=== PATIENT | female | born 1985 | race Caucasian/White ===

== ENCOUNTER 2017-12-20 07:26 | Emergency (ER) | payer BC ==
--- NOTE | 2017-12-20 07:49 | EDM.PDOC ---
ED HPI GENERAL MEDICAL PROBLEM - General Chief Complaint: ENT Problem Stated Complaint: SORE THROAT Time Seen by Provider: 12/20/17 07:37 - History of Present Illness INITIAL COMMENTS - FREE TEXT/NARRATIVE: HISTORY AND PHYSICAL: History of present illness: The patient is a 32-year-old female who presents with a one-day history of her throat and left ear pain cough occasionally productive of phlegm and nasal congestion. The patient is at her fever nausea vomiting or abdominal pain. The patient denies . She says she was seen several weeks ago by Dr. Stephens for laryngitis and was treated with a medication for 3 days and improved. She has no shortness of breath or chest pain. Been eating and drinking normally but there is discomfort with swallowing. Patient has a history of a tonsillectomy and she did not get her influenza shot this year Review of systems: As per history of present illness and below otherwise all systems reviewed and negative. Past medical history: As per history of present illness and as reviewed below otherwise noncontributory. Surgical history: As per history of present illness and as reviewed below otherwise noncontributory. Social history: No reported history of drug or alcohol abuse. Family history: As per history of present illness and as reviewed below otherwise noncontributory. Physical exam: Gen.: Well-developed well-nourished female who is voice is not breathless or hoarse but is slightly nasal. Vital signs are noted by me. HEENT: Atraumatic, normocephalic, pupils reactive, negative for conjunctival pallor or scleral icterus, mucous membranes moist, throat clear of any swelling but there is some erythema of the posterior oropharynx right greater than left and some mucus seen on the left crypt, there is no cervical adenopathy or nuchal rigidity, the right TM is slightly dulled in the left TM is reddened and slightly bulging,, neck supple, nontender, trachea midline. Lungs: Clear to auscultation, breath sounds equal bilaterally, chest nontender. Heart: S1S2, regular rate and rhythm no overt murmurs Abdomen: Soft, nondistended, nontender. NABS Pelvis: Deferred Genitourinary: Deferred. Rectal: Deferred. Extremities: Atraumatic, negative for cords or calf pain. Neurovascular unremarkable. Neuro: Awake, alert, oriented. Cranial nerves II through XII unremarkable. Cerebellum unremarkable. Motor and sensory unremarkable throughout. Exam nonfocal. Diagnostics: Rapid strep influenza Therapeutics: [] Impression: Left otitis media/pharyngitis/cough-URI Definitive disposition and diagnosis as appropriate pending reevaluation and review of above. Left ear and throat pain Pain Score (Numeric/FACES): 8 - Related Data Allergies Allergy/AdvReac Type Severity Reaction Status Date / Time adhesive Allergy Redness Verified 12/20/17 07:36 Home Meds: Home Meds . [Unable to Verify Home Med List] 12/20/17 [History] Past Medical History Neurological History: Reports: MS - Past Surgical History HEENT Surgical History: Reports: Adenoidectomy, Myringotomy w Tube(s), Tonsillectomy Social & Family History - Family History Family Medical History: Noncontributory - Tobacco Use Smoking Status *Q: Never Smoker Second Hand Smoke Exposure: No - Caffeine Use Caffeine Use: Reports: Coffee, Soda - Alcohol Use Days Per Week of Alcohol Use: 0 - Recreational Drug Use Recreational Drug Use: No Drug Use in Last 12 Months: No ED ROS GENERAL - Review of Systems Review Of Systems: ROS reveals no pertinent complaints other than HPI. ED EXAM, GENERAL - Physical Exam Exam: See Below (See dictation) Course - Vital Signs Last Recorded V/S: Last Vital Signs Temp 36.5 C 12/20/17 07:38 Pulse 87 12/20/17 07:38 Resp 16 12/20/17 07:38 BP 136/98 H 12/20/17 07:38 Pulse Ox 98 12/20/17 07:38 - Orders/Labs/Meds Orders: Active Orders 24 hr Category Date Time Status CULTURE STREP A CONFIRMATION [RM] Stat Lab 12/20/17 07:50 Results STREP SCRN A RAPID W CULT CONF [RM] Stat Lab 12/20/17 07:50 Results Departure - Departure Time of Disposition: 08:31 Disposition: Home, Self-Care 01 Condition: Good Clinical Impression: Otitis media Qualifiers: Otitis media type: unspecified Laterality: left Qualified Code(s): H66.92 - Otitis media, unspecified, left ear URI (upper respiratory infection) Qualifiers: URI type: unspecified viral URI Qualified Code(s): J06.9 - Acute upper respiratory infection, unspecified Pharyngitis Qualifiers: Pharyngitis/tonsillitis etiology: unspecified etiology Qualified Code(s): J02.9 - Acute pharyngitis, unspecified - Discharge Information Referrals: Tima Stephens MD [Primary Care Provider] - Forms: ED Department Discharge Additional Instructions: The following information is given to patients seen in the emergency department who are being discharged to home. This information is to outline your options for follow-up care. We provide all patients seen in our emergency department with a follow-up referral. The need for follow-up, as well as the timing and circumstances, are variable depending upon the specifics of your emergency department visit. If you don't have a primary care physician on staff, we will provide you with a referral. We always advise you to contact your personal physician following an emergency department visit to inform them of the circumstance of the visit and for follow-up with them and/or the need for any referrals to a consulting specialist. The emergency department will also refer you to a specialist when appropriate. This referral assures that you have the opportunity for followup care with a specialist. All of these measure are taken in an effort to provide you with optimal care, which includes your followup. Under all circumstances we always encourage you to contact your private physician who remains a resource for coordinating your care. When calling for followup care, please make the office aware that this follow-up is from your recent emergency room visit. If for any reason you are refused follow-up, please contact the [facility] emergency department at and ask to speak to the emergency department charge nurse. [facility] Primary care- Internal Medicine and Family [address] [address] Push hydration and use [id number] medications for any fevers and pain. Take cough medicine as needed but only take when you're at home. Take antibiotics until they are finished and please call and schedule a follow-up appointment in the clinic in the next few days. Return to ER as needed and as discussed - My Orders Last 24 Hours: My Active Orders 12/20/17 07:50 CULTURE STREP A CONFIRMATION [RM] Stat STREP SCRN A RAPID W CULT CONF [] Stat - Assessment/Plan Last 24 Hours: My Active Orders 12/20/17 07:50 CULTURE STREP A CONFIRMATION [RM] Stat STREP SCRN A RAPID W CULT CONF [RM] Stat
[2017-12-20 09:05] VITALS: BP 125/86
== END 2017-12-20 08:50 | disposition home or self-care (01) ==
LOC: MW.ED 07:26
DX: J02.9 Acute pharyngitis, unspecified (principal); H66.92 Otitis media, unspecified, left ear; Z96.22 Myringotomy tube(s) status; Z98.890 Other specified postprocedural states; Z91.048 Other nonmedicinal substance allergy status
CPT/HCPCS: 87081; 87804; 87880; 99282; 99283

== ENCOUNTER 2020-03-26 09:25 | Day surgery (SDC) | payer OTHER ==
[~2020-03-26 09:25] MED LIST: Lactated Ringers 1,000 ML IV SCH; Lidocaine 1% with EPINEPHrine 1:100,000 10 ML MDV ONE
[2020-03-26] MEDS ORDERED: fentaNYL 100 MCG/2 ML SDV ONE (09:56)
[2020-03-26] MEDS ORDERED: Propofol 200 MG/20 ML SDV ONE (09:56)
[2020-03-26] MEDS ORDERED: Lidocaine 2% 5 ML SDV ONE (09:57)
[2020-03-26] MEDS ORDERED: Midazolam 1 MG/ML 2 ML SDV ONE (09:57)
[2020-03-26] MEDS ORDERED: Albuterol 0.083% 2.5 MG/3 ML Neb Soln NEB PRN (11:04)
[2020-03-26] MEDS ORDERED: 50% Dextrose in Water 50 ML Syringe IVPUSH PRN (11:04)
[2020-03-26] MEDS ORDERED: fentaNYL 100 MCG/2 ML SDV IVPUSH PRN (11:04)
[2020-03-26] MEDS ORDERED: Atropine 0.1 MG/ML 10 ML Syringe IVPUSH PRN ×2 (11:04)
[2020-03-26] MEDS ORDERED: Naloxone 0.4 MG/ML Syringe IVPUSH PRN (11:04)
[2020-03-26] MEDS ORDERED: EPINEPHrine 1:10,000 1 MG/10 ML Syringe IVPUSH PRN (11:04)
--- NOTE | 2020-03-26 11:16 | PCM.PREANE ---
Preanesthetic Assessment - Anesthesia/Transfusion/Family Hx Anesthesia History: Prior Anesthesia Without Reaction Family History of Anesthesia Reaction: No Transfusion History: No Prior Transfusion(s) - Review of Systems General: No Symptoms Pulmonary: No Symptoms Cardiovascular: No Symptoms Gastrointestinal: No Symptoms Neurological: Other (MS) Other: Reports: None - Physical Assessment NPO Status Date: 03/25/20 NPO Status Time: 23:00 Vital Signs: Last Vital Signs Temp 98.1 F 03/26/20 09:45 Pulse 64 03/26/20 09:45 Resp 16 03/26/20 09:45 BP 136/84 03/26/20 09:45 Pulse Ox 97 03/26/20 09:45 Height: 5 ft 11 in Weight: 96.615 kg ASA Class: 2 Mental Status: Alert & Oriented x3 Airway Class: Mallampati = 2 Dentition: Reports: Normal Dentition ROM/Head Extension: Full Lungs: Clear to Auscultation, Normal Respiratory Effort Cardiovascular: Regular Rate, Regular Rhythm - Allergies Allergies/Adverse Reactions: Allergies Allergy/AdvReac Type Severity Reaction Status Date / Time adhesive Allergy Redness Verified 03/20/20 13:15 - Anesthesia Plan Pre-Op Medication Ordered: None - Acknowledgements Anesthesia Type Planned: General Anesthesia Pt an Appropriate Candidate for the Planned Anesthesia: Yes Alternatives and Risks of Anesthesia Discussed w Pt/Guardian: Yes Pt/Guardian Understands and Agrees with Anesthesia Plan: Yes Additional Comments: PMH: MS. migraine,hx community aquired MRSA- 20 yr ago PreAnesthesia Questionnaire Cardiovascular History: Reports: Hypertension, Other (See Below) Other Cardiovascular History: hx of hypertension- has not taken medication for 5 months Neurological History: Reports: Migraines, MS, Other (See Below) Other Neuro History: hx of motion sickness, hx of MS- take an infusion twice a year Psychiatric History: Reports: Anxiety Other Psychiatric History: not diagnosed or treated - Past Surgical History Head Surgeries/Procedures: Reports: None HEENT Surgical History: Reports: Adenoidectomy, LASIK, Myringotomy w Tube(s), Tonsillectomy Female Surgical History: Reports: LEEP Neurological Surgical History: Reports: Laminectomy - SUBSTANCE USE Smoking Status *Q: Former Smoker Tobacco Use Within Last Twelve Months: No Days Per Week of Alcohol Use: 0 Recreational Drug Use History: No - HOME MEDS Home Medications: Home Meds Naratriptan HCl 1 mg PO ASDIRECTED PRN 03/20/20 [History] - CURRENT (IN HOUSE) MEDS Current Meds: Current Medications Albuterol (Proventil Neb Soln) 2.5 mg NEB ONETIME PRN PRN Reason: Wheezing Atropine Sulfate (Atropine 0.1 Mg/Ml) 0.5 mg IVPUSH ASDIRECTED PRN PRN Reason: Hypo-perfusion Atropine Sulfate (Atropine 0.1 Mg/Ml) 1 mg IVPUSH ASDIRECTED PRN PRN Reason: Hypo-Perfusion Dextrose/Water (Dextrose 50% In Water) 50 ml IVPUSH ASDIRECTED PRN PRN Reason: Hypoglycemia Epinephrine HCl (Epinephrine 1:10,000) 1 mg IVPUSH ASDIRECTED PRN PRN Reason: ACLS Guidelines Fentanyl (Sublimaze) 50 mcg IVPUSH Q5M PRN PRN Reason: Pain Lactated Ringer's (Ringers, Lactated) 1,000 mls @ 100 mls/hr IV ASDIRECTED EMILEE Naloxone HCl (Narcan) 0.1 mg IVPUSH ASDIRECTED PRN PRN Reason: Respiratory Depression Discontinued Medications Fentanyl (Sublimaze) Confirm Administered Dose 100 mcg .ROUTE .STK-MED ONE Stop: 03/26/20 09:57 Lidocaine (Xylocaine-Mpf 2%) Confirm Administered Dose 5 ml .ROUTE .STK-MED ONE Stop: 03/26/20 09:58 Lidocaine/Epinephrine (Xylocaine 1% With Epinephrine 1:100,000) Confirm Administered Dose 10 ml .ROUTE .STK-MED ONE Stop: 03/26/20 08:00 Midazolam HCl (Versed 1 Mg/Ml) Confirm Administered Dose 2 mg .ROUTE .STK-MED ONE Stop: 03/26/20 09:58 Propofol (Diprivan 20 Ml) Confirm Administered Dose 200 mg .ROUTE .STK-MED ONE Stop: 03/26/20 09:57
[2020-03-26] MEDS ORDERED: Dexamethasone 4 MG/ML 5 ML MDV ONE (12:19)
[2020-03-26] MEDS ORDERED: Ondansetron 4 MG/2 ML SDV ONE (12:19)
--- NOTE | 2020-03-26 12:37 | PCM.OPNOTE ---
- General Post-Op/Procedure Note Date of Surgery/Procedure: 03/26/20 Operative Procedure(s): LEEP Findings: large ectocervical area covered with acetowhite epithelium, with mosaicism and punctation, extending to endocervical canal. Pre Op Diagnosis: GERDA II Post-Op Diagnosis: Same Anesthesia Technique: General LMA Primary Surgeon: Gale Corona Anesthesia Provider: Mario Alberto Huynh Pathology: anterior ectocervix labelled at 12 o'clock, posterior ectocervix labelled at 6 o 'clock, endocervical "hat" labelled at 12 o'clock. EBL in mLs: 20 Complications: None known Condition: Good
--- NOTE | 2020-03-26 14:01 | OR ---
SURGEON: Gale Corona M.D. DATE OF PROCEDURE: 03/26/2020 PREOPERATIVE DIAGNOSIS: Cervical intraepithelial neoplasia 2. POSTOPERATIVE DIAGNOSIS: Cervical intraepithelial neoplasia 2. PROCEDURE: Loop electrode excisional procedure of the cervix. PRIMARY SURGEON: Gale Corona MD ANESTHESIA: Cervical block and LMA. ESTIMATED BLOOD LOSS: Less than 20 mL. FINDINGS: On colposcopic examination after acetic acid had been applied, there was a large area of acetowhite epithelium on the ectocervix. This included punctation and mosaicism, and Lugol's solution was applied. The nonstaining area was noted and removed with the LEEP specimen. COMPLICATIONS: None known. DISPOSITION: Stable to Recovery. BRIEF HISTORY: This is a 35-year-old female. She presents with GERDA-2 on biopsies performed last June. She has been delaying her surgery at first for school, also consideration of a hysterectomy for pelvic organ prolapse, and then was delayed due to COVID. She now presents for a loop electrode excisional procedure. She does not want to proceed with a hysterectomy at this time as her prolapse is tolerable, and she is concerned about the impact it may have on her MS. The risk of loop electrode excisional procedure was reviewed including bleeding, infection, and risk of incompetent cervix with future pregnancies. Understanding these risks, she does desire to proceed. DESCRIPTION OF PROCEDURE: With the patient in dorsal lithotomy position, under adequate LMA analgesia, an insulated speculum was placed into the vagina. Bladder had been drained. The cervix was inspected and acetic acid was applied. Colposcopic examination was performed with findings as noted above. A total of 10 mL of 1% lidocaine with epinephrine was injected at the 12, 5, and 7 o'clock position of the cervix. The anterior cervix was grasped with an insulated tenaculum. The ectocervix was very large and largely involving the acetowhite epithelium. Therefore, the largest loop was utilized to excise the anterior ectocervix, which was then labeled with a suture at 12 o'clock, and the same loop was utilized to excise the posterior ectocervix, which was also labeled at 6 o'clock with a suture. A hat type endocervical specimen was then taken using pure cut setting of 60. This was labeled at 12 o'clock. The base was then cauterized with pure cautery, pure coag at setting of 60, and Monsel's solution was applied. The cervix was hemostatic. Final sponge, needle, and instrument counts were correct. All the instruments were removed from the vagina. The patient was transferred to Recovery in good condition. VALENTE MURCIA /[id number]
[2020-03-26 14:20] VITALS: BP 130/85; PULSE 78
--- NOTE | 2020-03-26 14:22 | PCM.POSTAN ---
POST ANESTHESIA ASSESSMENT - MENTAL STATUS Mental Status: Alert, Oriented - VITAL SIGNS Vital Signs: Last Vital Signs Temp 97.5 F 03/26/20 13:00 Pulse 78 03/26/20 13:45 Resp 16 03/26/20 13:45 BP 130/85 03/26/20 13:45 Pulse Ox 99 03/26/20 13:45 - RESPIRATORY Respiratory Status: Respiratory Rate WNL, Airway Patent, O2 Saturation Stable - CARDIOVASCULAR CV Status: Pulse Rate WNL, Blood Pressure Stable - GASTROINTESTINAL GI Status: No Symptoms - POST OP HYDRATION Hydration Status: Adequate & Stable
--- NOTE | 2020-03-26 14:23 | PCM48HPAN ---
Post Anesthesia Note - EVALUATION WITHIN 48HRS OF ANESTHETIC Vital Signs in Normal Range: Yes Patient Participated in Evaluation: Yes Respiratory Function Stable: Yes Airway Patent: Yes Cardiovascular Function Stable: Yes Hydration Status Stable: Yes Pain Control Satisfactory: Yes Nausea and Vomiting Control Satisfactory: Yes Mental Status Recovered: Yes Vital Signs: Last Vital Signs Temp 97.5 F 03/26/20 13:00 Pulse 78 03/26/20 13:45 Resp 16 03/26/20 13:45 BP 130/85 03/26/20 13:45 Pulse Ox 99 03/26/20 13:45
== END 2020-03-26 14:30 | disposition home or self-care (01) ==
LOC: MW.SDS 09:25 → EEVIPCON 09:25 → MW.SDS 14:30
PROVIDERS: ATTEND Obstetrics & Gynecology
DX: N87.1 Moderate cervical dysplasia (principal); I10 Essential (primary) hypertension; F41.9 Anxiety disorder, unspecified; Z87.891 Personal history of nicotine dependence
CPT/HCPCS: 57460; J1100; J2001; J2250; J2405; J2704; J3010; J7120; 00944; 88305; 88307

== ENCOUNTER 2020-08-24 08:52 | Observation (INO) | payer OTHER ==
[~2020-08-24 08:52] MED LIST changes: +Bupivacaine 0.25% 10 ML SDV ONE; +Fluorescein 5 ML Vial ONE; +Glycopyrrolate 0.2 MG/ML SDV ONE; -Lidocaine 1% with EPINEPHrine 1:100,000 10 ML MDV ONE; +Lidocaine 2% 5 ML SDV ONE; +Midazolam 1 MG/ML 2 ML SDV ONE; +Ondansetron 4 MG/2 ML SDV ONE; +Propofol 200 MG/20 ML SDV ONE; +fentaNYL 250 MCG/5 ML SDV ONE
--- NOTE | 2020-08-24 09:25 | PCM.PREANE ---
Preanesthetic Assessment - Anesthesia/Transfusion/Family Hx Anesthesia History: Prior Anesthesia Without Reaction Family History of Anesthesia Reaction: No Transfusion History: No Prior Transfusion(s) - Review of Systems General: No Symptoms Pulmonary: No Symptoms Cardiovascular: No Symptoms Gastrointestinal: No Symptoms Neurological: No Symptoms Other: Reports: None - Physical Assessment NPO Status Date: 08/23/20 Height: 5 ft 10 in Weight: 97.976 kg ASA Class: 2 Mental Status: Alert & Oriented x3 Airway Class: Mallampati = 2 Dentition: Reports: Normal Dentition ROM/Head Extension: Full Lungs: Clear to Auscultation, Normal Respiratory Effort Cardiovascular: Regular Rate, Regular Rhythm - Lab Values: Laboratory Last Values Urine HCG, Qual NEGATIVE (NEGATIVE) 08/24/20 09:04 - Allergies Allergies/Adverse Reactions: Allergies Allergy/AdvReac Type Severity Reaction Status Date / Time adhesive Allergy Redness Verified 08/22/20 07:47 - Blood Blood Available: No - Anesthesia Plan Pre-Op Medication Ordered: None - Acknowledgements Anesthesia Type Planned: General Anesthesia Pt an Appropriate Candidate for the Planned Anesthesia: Yes Alternatives and Risks of Anesthesia Discussed w Pt/Guardian: Yes Pt/Guardian Understands and Agrees with Anesthesia Plan: Yes Additional Comments: anes prob list: migraines, MS- stable asymptomatic x 1.5 yr, Plan: get, passive but no active warming during surgery PreAnesthesia Questionnaire HEENT History: Reports: None Cardiovascular History: Reports: Hypertension, Other (See Below) Other Cardiovascular History: hx of hypertension- has not taken medication for 5 months Respiratory History: Reports: None Gastrointestinal History: Reports: None Genitourinary History: Reports: None WOUND CARE SPECIALIST History: Reports: Dysfunctional Uterine Bleeding, Musculoskeletal History: Reports: None Neurological History: Reports: Migraines, MS, Other (See Below) Other Neuro History: hx of motion sickness, hx of MS- take an infusion twice a year Psychiatric History: Reports: Anxiety Other Psychiatric History: not diagnosed or treated Endocrine/Metabolic History: Reports: Obesity/BMI 30+ Hematologic History: Reports: None Immunologic History: Reports: None Oncologic (Cancer) History: Reports: None Dermatologic History: Reports: None - Infectious Disease History Infectious Disease History: Reports: Other (See Below) Other Infectious Disease History: MRSA in the past, has been cleared - Past Surgical History HEENT Surgical History: Reports: Adenoidectomy, LASIK, Myringotomy w Tube(s), Tonsillectomy - SUBSTANCE USE Tobacco Use Status *Q: Former Tobacco User Tobacco Use Within Last Twelve Months: No - HOME MEDS Home Medications: Home Meds Naratriptan HCl 1 mg PO ASDIRECTED PRN 03/20/20 [History] Acetaminophen [Tylenol] 1 - 2 tab PO ASDIRECTED PRN 08/22/20 [History] Ocrelizumab [Ocrevus] 1 dose IV ASDIRECTED 08/22/20 [History] Promethazine [Phenergan] 0.5 - 1 tab PO Q8H PRN 08/22/20 [History] Triamterene/Hydrochlorothiazid [Triamterene-HCTZ 37.5-25 MG] 1 tab PO DAILY 08/22/20 [History] medroxyPROGESTERone [Provera] 10 mg PO DAILY 08/22/20 [History] - CURRENT (IN HOUSE) MEDS Current Meds: Current Medications Lactated Ringer's (Ringers, Lactated) 1,000 mls @ 100 mls/hr IV ASDIRECTED EMILEE Discontinued Medications Bupivacaine HCl (Sensorcaine-Mpf 0.25%) Confirm Administered Dose 10 ml .ROUTE .STK-MED ONE Stop: 08/24/20 07:53 Fentanyl (Sublimaze) Confirm Administered Dose 250 mcg .ROUTE .STK-MED ONE Stop: 08/24/20 06:55 Fluorescein Sodium (Ak-Fluor) Confirm Administered Dose 5 ml .ROUTE .STK-MED ONE Stop: 08/24/20 07:53 Glycopyrrolate (Robinul) Confirm Administered Dose 0.4 mg .ROUTE .STK-MED ONE Stop: 08/24/20 06:54 Glycopyrrolate (Robinul) Confirm Administered Dose 0.4 mg .ROUTE .STK-MED ONE Stop: 08/24/20 06:55 Lidocaine (Xylocaine-Mpf 2%) Confirm Administered Dose 5 ml .ROUTE .STK-MED ONE Stop: 08/24/20 06:54 Midazolam HCl (Versed 1 Mg/Ml) Confirm Administered Dose 2 mg .ROUTE .STK-MED ONE Stop: 08/24/20 06:55 Ondansetron HCl (Zofran) Confirm Administered Dose 4 mg .ROUTE .STK-MED ONE Stop: 08/24/20 06:54 Propofol (Diprivan 20 Ml) Confirm Administered Dose 200 mg .ROUTE .[facility] ONE Stop: 08/24/20 06:54
[2020-08-24] MEDS ORDERED: Albuterol 0.083% 2.5 MG/3 ML Neb Soln NEB PRN (09:42)
[2020-08-24] MEDS ORDERED: Naloxone 0.4 MG/ML Syringe IVPUSH PRN (09:42)
[2020-08-24] MEDS ORDERED: EPINEPHrine 1:10,000 1 MG/10 ML Syringe IVPUSH PRN (09:42)
[2020-08-24] MEDS ORDERED: Atropine 0.1 MG/ML 10 ML Syringe IVPUSH PRN ×2 (09:42)
[2020-08-24] MEDS ORDERED: 50% Dextrose in Water 50 ML Syringe IVPUSH PRN (09:42)
[2020-08-24] MEDS ORDERED: Neomycin/Polymyxin B Bladder Irrigation 1 ML Amp ONE (09:58)
[2020-08-24] MEDS ORDERED: Lidocaine 1% 20 ML MDV ONE (09:58)
[2020-08-24] MEDS ORDERED: Sodium Chloride 0.9% 20 ML ONE (10:09)
[2020-08-24] MEDS ORDERED: ceFAZolin 1 GM Vial ONE (10:09)
[2020-08-24 10:11] LABS: BLOOD UREA NITROGEN,BUN 12 mg/dL (7.0-18.0); CHLORIDE,CL 108 mmol/L (98-107); GLUCOSE RANDOM 100 mg/dL (74-106); POTASSIUM,K 4.4 mmol/L (3.5-5.1); SODIUM,NA 142 mmol/L (136-145)
[2020-08-24] MEDS ORDERED: Furosemide 40 MG/4 ML VIAL ONE (10:21)
[2020-08-24] MEDS ORDERED: fentaNYL 100 MCG/2 ML SDV ONE (11:08)
[2020-08-24] MEDS ORDERED: HYDROmorphone 2 MG/ML Syringe ONE (11:08)
[2020-08-24] MEDS ORDERED: Morphine 4 MG/ML Syringe IVPUSH PRN (13:08)
[2020-08-24] MEDS ORDERED: Ondansetron 4 MG/2 ML SDV IVPUSH PRN (13:08)
[2020-08-24] MEDS ORDERED: Acetaminophen/oxyCODONE 325-5 MG Tab PO PRN (13:08)
[2020-08-24] MEDS ORDERED: Promethazine 25 MG/ML SDV IM PRN (13:08)
--- NOTE | 2020-08-24 13:08 | PCM.OPNOTE ---
- General Post-Op/Procedure Note Date of Surgery/Procedure: 08/24/20 Operative Procedure(s): total vaginal hysterectomy, posterior colporrhaphy, perineorrhaphy, midurethral sling, cystoscopy Findings: 3rd degree uterine prolapse, enlarged 12 weeks size uterus, boggy, follicular cyst left ovary right paratubal cyst, normal cystoscopy, urethral hypermobility. Pre Op Diagnosis: menorrhagia with anemia, incomplete uterovaginal prolapse. Post-Op Diagnosis: Same Anesthesia Technique: General ET Tube Primary Surgeon: Gale Corona Secondary Surgeon: Alvin Mancuso Anesthesia Provider: Mario Alberto Huynh Trip Rider: Mario Alberto Vargas Pathology: uterus and vaginal mucosa Fluid Replacement, Intraop: 2,800 Output, Urine Amount: 450 EBL in mLs: 750 Complications: None Known Condition: Good
[2020-08-24] MEDS: fentaNYL 100 MCG/2 ML SDV IVPUSH PRN ×4 (13:33→13:55)
--- NOTE | 2020-08-24 14:07 | OR ---
SURGEON: Gale Corona M.D. DATE OF PROCEDURE: 08/24/2020 PREOPERATIVE DIAGNOSES: 1. Menorrhagia with anemia. 2. Stress urinary incontinence. 3. Incomplete uterovaginal prolapse. POSTOPERATIVE DIAGNOSES: 1. Menorrhagia with anemia. 2. Stress urinary incontinence. 3. Incomplete uterovaginal prolapse. PROCEDURES: Total vaginal hysterectomy, posterior colporrhaphy, perineorrhaphy, cystoscopy, and single incision mid urethral sling. PRIMARY SURGEON: Gale Corona M.D. PRINCIPAL EMBEDDED SOFTWARE ENGINEER: Alvin Mancuso MD ANESTHESIA: General endotracheal. FLUIDS: 2800 mL of crystalloid. ESTIMATED BLOOD LOSS: 750 mL. URINE OUTPUT: 450 mL. COMPLICATIONS: None known. DISPOSITION: Stable, to Recovery. BRIEF HISTORY: This is a 35-year-old female. She has been having ongoing menorrhagia with severely heavy prolonged periods, minimal break in bleeding. She had a markedly abnormal ultrasound with a thickened and cystic endometrium along the posterior wall of the uterus. However, endometrial biopsy was normal. She has been breaking through bleeding with Provera and tranexamic acid. She was trying to wait until Magaly break to proceed with hysterectomy; however, the most recent episode of bleeding was very severe and difficult to stop, and she agrees to proceed with hysterectomy at this time. She also has symptomatic uterine prolapse, a gaping introitus, cystocele, and a rectocele, and I have previously recommended proceeding with a total vaginal hysterectomy, anterior and posterior colporrhaphy, perineorrhaphy, and possible vaginal vault suspension. She does, at this point, desire to proceed. In discussing with her, she does have concern about urinary stress incontinence. She severely limits her activities related to exercise or physical activities with her children due to urinary leakage. She wears a pad continuously and changes several times a day. However, on retrospective discussion, she wears a daily pad related to bleeding, and this does help with her incontinence. Therefore, she was scheduled for cystometry which confirmed severe stress urinary incontinence with urethral hypermobility, normal bladder capacity, minimal bladder contractions, and therefore, she was offered to proceed with a mid urethral sling. This would be beneficial related to stress incontinence. However, I explained that it would not help with her urinary urgency, and in the future, she may require medication for urinary urgency which is a significant portion of her issue with incontinence. I also discussed the surgical risks of urinary retention; voiding dysfunction; bleeding; infection; injury to organs such as bowel, bladder, blood vessels, and ureter; possibility of requiring short-term catheterization; and possibility of mesh erosion. Understanding all this, she does desire to proceed with a total vaginal hysterectomy, anterior and posterior colporrhaphy, perineorrhaphy, cystoscopy, possible vaginal vault suspension, as well as the mid urethral sling. DESCRIPTION OF PROCEDURE: With the patient in dorsal lithotomy position, under adequate general tracheal anesthesia, the abdomen, perineum, and vagina were prepped with Betadine and draped in the usual fashion for vaginal surgery. SCDs were in place. She had received 2 g of Ancef IV. Appropriate time-out was held, including the note that her preoperative hemoglobin was low at 10.3. A bimanual examination was performed revealing a 12-week size mobile anteverted uterus with the cervix descending to the level of the introitus. A rectocele and gaping introitus were also noted as well as urethral hypermobility. A weighted speculum was placed posteriorly. Right angle retractor was placed anteriorly. The cervix was grasped with a single-toothed tenaculum, and the cervix was circumscribed using electrocautery. The vaginal mucosa was pushed away. The anterior cul-de-sac was entered using sharp and blunt dissection. The right angle retractor was placed into the anterior cul-de-sac. The posterior cul-de-sac was entered sharply. A Zenon-Auvard speculum was placed posteriorly. Due to her known anemia and history of extremely heavy bleeding, I did double clamp all of the pedicles. The uterosacral ligament was doubly clamped with a Saima clamp and tied using a simple tie followed by a Saima ligature of 2-0 Polysorb. This was repeated on the opposite side. Three additional pedicles were taken on the right and the left until the double clamping with a Saima clamp with a simple tie followed by Saima ligature for every pedicle. The utero-ovarian pedicles were then identified, cross clamped, cut, and the uterus was delivered vaginally. The retained ligatures on the ovary were tied with a 3-point suture of 0 Polysorb, and all the sutures were inspected. There was some bleeding adjacent to the right uterosacral ligament that was controlled by grasping with a Saima suture and utilizing the retained uterosacral ligament suture to incorporate the posterior vaginal mucosa tissue to the uterosacral ligament. This being completed, both retained uterosacral ligament ligatures had excellent support and in fact were utilized to support the vaginal mucosa utilizing a suture, placing it through the vaginal mucosa and back through the uterosacral ligament on the right and the left. With this, the posterior vagina was well supported. The pedicles were all carefully inspected and were completely hemostatic. At this point, evaluation of the prolapse showed excellent rugation anteriorly, and there was no midline cystocele. Rather, the anterior wall of the vagina was descending related to the fact that it was not supported at the apex. With the excellent uterosacral ligature support, I felt that we did not need to proceed with an anterior colporrhaphy, and therefore, in order to better support the anterior wall of the vagina, I did close the cuff anterior to posterior with a transverse closure using a running lock suture of 0 Polysorb. With this, there was excellent support of the anterior vaginal wall. There was no significant enterocele. Therefore, at this time, cystoscopy was performed after IV fluorescein had been given, and there was copious flow of bright green urine from bilateral ureteral orifices. There was also no evidence of any trauma to the bladder mucosa. The catheter was then replaced, and a retractor was placed over the anterior vagina. A triangular incision was made in the perineum, and the tissue was undermined with Metzenbaum scissors and removed. The posterior wall of the vagina was then undermined with hydrodissection, and the midline vaginal mucosa was incised using Metzenbaum scissors. The edges of the vaginal mucosa were grasped with Allis clamps, and the underlying muscularis layer was using sharp and blunt dissection. This being completed, there was a large amount of blood flow from the posterior vaginal wall, and this was controlled isolating the areas of bleeding with a hemostat and then cauterizing and then also isolating certain areas and ligating them. With this, the vaginal mucosa and muscularis layer were hemostatic, and the muscularis layer was then reapproximated in the midline using multiple interrupted sutures of 2-0 Polysorb in a mattress formation. The vaginal mucosa was slightly trimmed and closed with a running lock suture of 0 Polysorb which was continued down to the level of the introitus and then brought below to the perineum where the deep perineal tissue was reapproximated using a running suture of the same. 4-0 Monocryl was then utilized to reapproximate the more superficial tissue and then coming back with a subcuticular suture over the perineal skin. With this being completed, the weighted speculum was placed posteriorly. The right angle retractor was removed, and the balloon of the catheter was palpated to identify the urethra. Approximately 0.8 cm from the urethral meatus, a 1 cm incision was made with a scalpel. Hydrodissection was performed laterally toward the pubic ramus on the right and the left. Metzenbaum scissors were then used to undermine the vaginal mucosa heading toward the pubic ramus on the right and the left. The Solyx sling was then placed through the vaginal incision aiming at a 45-degree angle toward the pubic ramus, and then, once it had passed the pubic ramus and going more laterally to pass through the obturator foramen, the Solyx was released into the right obturator foramen, and this was then repeated on the left without difficulty, and the tension of the tape was tested. A suture scissors could be placed between the tape and the urethra without significant difficulty, but there was good support. Therefore, the tape was released and the vaginal mucosa was closed with a running suture of 0 Polysorb. The vagina was then packed with vaginal packing instilled with KY jelly. Final sponge, needle, and instrument counts were reported as correct. There were no known complications. The patient was transferred to Recovery in good condition. Due to her pre-existing anemia along with significant bleeding during the surgery, she will have a postop hemoglobin checked in Recovery, and that is pending at this time. VALENTE / DIVINA /[id number]
--- NOTE | 2020-08-24 14:15 | PCM.POSTAN ---
POST ANESTHESIA ASSESSMENT - MENTAL STATUS Mental Status: Alert, Oriented - VITAL SIGNS Vital Signs: Last Vital Signs Temp 97.9 F 08/24/20 12:50 Pulse 81 08/24/20 14:14 Resp 12 08/24/20 14:14 BP 128/83 08/24/20 14:14 Pulse Ox 97 08/24/20 14:14 - RESPIRATORY Respiratory Status: Respiratory Rate WNL, Airway Patent, O2 Saturation Stable - CARDIOVASCULAR CV Status: Pulse Rate WNL, Blood Pressure Stable - GASTROINTESTINAL GI Status: No Symptoms - PAIN Pain Score: 3 - POST OP HYDRATION Hydration Status: Adequate & Stable
[2020-08-24] MEDS: Acetaminophen/oxyCODONE 325-5 MG Tab PO PRN ×2 (17:01→22:04)
[2020-08-25 06:52] LABS: BLOOD UREA NITROGEN,BUN 6 mg/dL (7.0-18.0); CARBON DIOXIDE,CO2 26.6 mmol/L (21.0-32.0); CHLORIDE,CL 106 mmol/L (98-107); GLUCOSE RANDOM 98 mg/dL (74-106); POTASSIUM,K 4.1 mmol/L (3.5-5.1); SODIUM,NA 141 mmol/L (136-145)
--- NOTE | 2020-08-25 08:28 | PCM.SURGPN ---
- General Info Date of Service: 08/25/20 Date of Surgery/Procedure: 08/24/20 POD#: 1 Post-Op Diagnosis: menorrhagia, with anemia, incomplete uterovaginal prolapse, stress urinary incontinence Functional Status: Reports: Pain Controlled, Tolerating Diet. Denies: Urinating (hugo and packing taken out at this time) - Review of Systems General: Reports: No Symptoms HEENT: Reports: No Symptoms Pulmonary: Reports: No Symptoms Cardiovascular: Reports: No Symptoms Gastrointestinal: Reports: No Symptoms Genitourinary: Reports: No Symptoms Musculoskeletal: Reports: No Symptoms Skin: Reports: No Symptoms Neurological: Reports: No Symptoms Psychiatric: Reports: No Symptoms - Patient Data Vitals - Most Recent: Last Vital Signs Temp 37.2 C 08/25/20 04:00 Pulse 96 08/25/20 04:00 Resp 16 08/25/20 04:00 BP 115/59 L 08/25/20 04:00 Pulse Ox 96 08/25/20 04:00 Weight - Most Recent: 97.976 kg I&O - Last 24 Hours: Intake & Output 08/24/20 08/25/20 08/25/20 22:59 06:59 14:59 Intake Total 1000 Output Total 2000 Balance -1000 Lab Results Last 24 Hrs: Laboratory Results - last 24 hr 08/24/20 08/24/20 08/24/20 Range/Units 09:04 09:29 09:29 WBC 10.05 (4.0-11.0) K/uL RBC 3.69 L (4.30-5.90) M/uL Hgb 10.3 L (12.0-16.0) g/dL Hct 32.1 L (36.0-46.0) % MCV 87.0 (80.0-98.0) fL MCH 27.9 (27.0-32.0) pg MCHC 32.1 (31.0-37.0) g/dL RDW Std Deviation 46.9 (28.0-62.0) fl RDW Coeff of Zeus 15 (11.0-15.0) % Plt Count 346 (150-400) K/uL MPV 10.20 (7.40-12.00) fL Neut % (Auto) (48.0-80.0) % Lymph % (Auto) (16.0-40.0) % Hardin % (Auto) (0.0-15.0) % Eos % (Auto) (0.0-7.0) % Baso % (Auto) (0.0-1.5) % Neut # (Auto) (1.4-5.7) K/uL Lymph # (Auto) (0.6-2.4) K/uL Hardin # (Auto) (0.0-0.8) K/uL Eos # (Auto) (0.0-0.7) K/uL Baso # (Auto) (0.0-0.1) K/uL Nucleated RBC % 0.0 /100WBC Nucleated RBCs # 0 K/uL Sodium (136-145) mmol/L Potassium (3.5-5.1) mmol/L Chloride (98-107) mmol/L Carbon Dioxide (21.0-32.0) mmol/L BUN (7.0-18.0) mg/dL Creatinine (0.6-1.0) mg/dL Est Cr Clr Drug Dosing mL/min Estimated GFR (MDRD) ml/min Glucose (74-106) mg/dL Calcium (8.5-10.1) mg/dL Urine HCG, Qual NEGATIVE (NEGATIVE) Blood Type O POSITIVE Antibody Screen NEGATIVE 08/24/20 08/24/20 08/24/20 Range/Units 09:29 13:28 13:28 WBC (4.0-11.0) K/uL RBC (4.30-5.90) M/uL Hgb 9.2 L (12.0-16.0) g/dL Hct 29.1 L (36.0-46.0) % MCV (80.0-98.0) fL MCH (27.0-32.0) pg MCHC (31.0-37.0) g/dL RDW Std Deviation (28.0-62.0) fl RDW Coeff of Zeus (11.0-15.0) % Plt Count (150-400) K/uL MPV (7.40-12.00) fL Neut % (Auto) (48.0-80.0) % Lymph % (Auto) (16.0-40.0) % Hardin % (Auto) (0.0-15.0) % Eos % (Auto) (0.0-7.0) % Baso % (Auto) (0.0-1.5) % Neut # (Auto) (1.4-5.7) K/uL Lymph # (Auto) (0.6-2.4) K/uL Hardin # (Auto) (0.0-0.8) K/uL Eos # (Auto) (0.0-0.7) K/uL Baso # (Auto) (0.0-0.1) K/uL Nucleated RBC % /100WBC Nucleated RBCs # K/uL Sodium 142 (136-145) mmol/L Potassium 4.4 (3.5-5.1) mmol/L Chloride 108 H (98-107) mmol/L Carbon Dioxide 25.0 (21.0-32.0) mmol/L BUN 12 (7.0-18.0) mg/dL Creatinine 0.6 (0.6-1.0) mg/dL Est Cr Clr Drug Dosing 140.17 mL/min Estimated GFR (MDRD) > 60.0 ml/min Glucose 100 (74-106) mg/dL Calcium 8.9 (8.5-10.1) mg/dL Urine HCG, Qual (NEGATIVE) Blood Type Antibody Screen 08/25/20 08/25/20 Range/Units 05:09 05:09 WBC 19.39 H (4.0-11.0) K/uL RBC 2.80 L (4.30-5.90) M/uL Hgb 7.7 L (12.0-16.0) g/dL Hct 24.6 L (36.0-46.0) % MCV 87.9 (80.0-98.0) fL MCH 27.5 (27.0-32.0) pg MCHC 31.3 (31.0-37.0) g/dL RDW Std Deviation 48.3 (28.0-62.0) fl RDW Coeff of Zeus 15 (11.0-15.0) % Plt Count 345 (150-400) K/uL MPV 10.30 (7.40-12.00) fL Neut % (Auto) 82.0 H (48.0-80.0) % Lymph % (Auto) 9.2 L (16.0-40.0) % Hardin % (Auto) 8.7 (0.0-15.0) % Eos % (Auto) 0.0 (0.0-7.0) % Baso % (Auto) 0.1 (0.0-1.5) % Neut # (Auto) 15.9 H (1.4-5.7) K/uL Lymph # (Auto) 1.8 (0.6-2.4) K/uL Hardin # (Auto) 1.7 H (0.0-0.8) K/uL Eos # (Auto) 0.0 (0.0-0.7) K/uL Baso # (Auto) 0.0 (0.0-0.1) K/uL Nucleated RBC % 0.0 /100WBC Nucleated RBCs # 0 K/uL Sodium 141 (136-145) mmol/L Potassium 4.1 (3.5-5.1) mmol/L Chloride 106 (98-107) mmol/L Carbon Dioxide 26.6 (21.0-32.0) mmol/L BUN 6 L (7.0-18.0) mg/dL Creatinine 0.7 (0.6-1.0) mg/dL Est Cr Clr Drug Dosing 120.15 mL/min Estimated GFR (MDRD) > 60.0 ml/min Glucose 98 (74-106) mg/dL Calcium 8.3 L (8.5-10.1) mg/dL Urine HCG, Qual (NEGATIVE) Blood Type Antibody Screen Med Orders - Current: Current Medications Morphine Sulfate (Morphine) 4 mg IVPUSH Q2H PRN PRN Reason: Pain (severe 7-10) Ondansetron HCl (Zofran) 4 mg IVPUSH Q6H PRN PRN Reason: Nausea/Vomiting Oxycodone/Acetaminophen (Percocet 325-5 Mg) 1 tab PO Q4H PRN PRN Reason: Pain (moderate 4-6) Last Admin: 08/25/20 04:57 Dose: 1 tab Documented by: Oxycodone/Acetaminophen (Percocet 325-5 Mg) 2 tab PO Q4H PRN PRN Reason: Pain (moderate 4-6) Last Admin: 08/24/20 22:04 Dose: 2 tab Documented by: Promethazine HCl (Phenergan) 25 mg IM Q6H PRN PRN Reason: Nausea/Vomiting Discontinued Medications Albuterol (Proventil Neb Soln) 2.5 mg NEB ONETIME PRN PRN Reason: Wheezing Atropine Sulfate (Atropine 0.1 Mg/Ml) 0.5 mg IVPUSH ASDIRECTED PRN PRN Reason: Hypo-perfusion Atropine Sulfate (Atropine 0.1 Mg/Ml) 1 mg IVPUSH ASDIRECTED PRN PRN Reason: Hypo-Perfusion Bupivacaine HCl (Sensorcaine-Mpf 0.25%) Confirm Administered Dose 10 ml .ROUTE .STK-MED ONE Stop: 08/24/20 07:53 Cefazolin Sodium (Ancef) Confirm Administered Dose 2 gm .ROUTE .STK-MED ONE Stop: 08/24/20 10:10 Dextrose/Water (Dextrose 50% In Water) 50 ml IVPUSH ASDIRECTED PRN PRN Reason: Hypoglycemia Epinephrine HCl (Epinephrine 1:10,000) 1 mg IVPUSH ASDIRECTED PRN PRN Reason: ACLS Guidelines Fentanyl (Sublimaze) Confirm Administered Dose 250 mcg .ROUTE .STK-MED ONE Stop: 08/24/20 06:55 Fentanyl (Sublimaze) 50 - 100 mcg IVPUSH Q5M PRN PRN Reason: Pain Last Admin: 08/24/20 13:55 Dose: 50 mcg Documented by: Fentanyl (Sublimaze) Confirm Administered Dose 100 mcg .ROUTE .STK-MED ONE Stop: 08/24/20 11:09 Fluorescein Sodium (Ak-Fluor) Confirm Administered Dose 5 ml .ROUTE .STK-MED ONE Stop: 08/24/20 07:53 Furosemide (Lasix) Confirm Administered Dose 40 mg .ROUTE .STK-MED ONE Stop: 08/24/20 10:22 Glycopyrrolate (Robinul) Confirm Administered Dose 0.4 mg .ROUTE .STK-MED ONE Stop: 08/24/20 06:54 Glycopyrrolate (Robinul) Confirm Administered Dose 0.4 mg .ROUTE .STK-MED ONE Stop: 08/24/20 06:55 Hydromorphone HCl (Dilaudid) Confirm Administered Dose 2 mg .ROUTE .STK-MED ONE Stop: 08/24/20 11:09 Lactated Ringer's (Ringers, Lactated) 1,000 mls @ 100 mls/hr IV ASDIRECTED EMILEE Sodium Chloride (Normal Saline) Confirm Administered Dose 20 mls @ as directed .ROUTE .STK-MED ONE Stop: 08/24/20 10:10 Lidocaine (Xylocaine-Mpf 2%) Confirm Administered Dose 5 ml .ROUTE .STK-MED ONE Stop: 08/24/20 06:54 Lidocaine HCl (Xylocaine 1%) Confirm Administered Dose 20 ml .ROUTE .STK-MED ONE Stop: 08/24/20 09:59 Midazolam HCl (Versed 1 Mg/Ml) Confirm Administered Dose 2 mg .ROUTE .STK-MED ONE Stop: 08/24/20 06:55 Naloxone HCl (Narcan) 0.1 mg IVPUSH ASDIRECTED PRN PRN Reason: Respiratory Depression Neomycin/Polymyxin (Neosporin Gu Irrigant) Confirm Administered Dose 1 ml .ROUTE .STK-MED ONE Stop: 08/24/20 09:59 Ondansetron HCl (Zofran) Confirm Administered Dose 4 mg .ROUTE .STK-MED ONE Stop: 08/24/20 06:54 Propofol (Diprivan 20 Ml) Confirm Administered Dose 200 mg .ROUTE .STK-MED ONE Stop: 08/24/20 06:54 - Exam Wound/Incisions: Other (vaginal packing removed minimal blood.) General: Alert, Oriented Lungs: Normal Respiratory Effort GI/Abdominal Exam: Non-Tender, No Distention Extremities: Non-Tender, No Pedal Edema, Normal Capillary Refill Neurological: No New Focal Deficit Psy/Mental Status: Alert, Normal Affect, Normal Mood Sepsis Event Note - Evaluation Sepsis Screening Result: No Definite Risk - Focused Exam Vital Signs: Vital Signs Temp Pulse Resp BP Pulse Ox 08/25/20 04:00 37.2 C 96 16 115/59 L 96 08/25/20 00:00 37.4 C 97 16 123/57 L 96 - Problem List & Annotations (1) Menorrhagia with irregular cycle SNOMED Code(s): 559272527 Code(s): N92.1 - EXCESSIVE AND FREQUENT MENSTRUATION WITH IRREGULAR CYCLE Status: Acute Current Visit: Yes (2) PRADEEP (stress urinary incontinence, female) SNOMED Code(s): 88192800 Code(s): N39.3 - STRESS INCONTINENCE (FEMALE) (MALE) Status: Acute Current Visit: Yes (3) Incomplete uterine prolapse SNOMED Code(s): 01844712832815146 Code(s): N81.2 - INCOMPLETE UTEROVAGINAL PROLAPSE Status: Acute Current Visit: Yes (4) Chronic blood loss anemia SNOMED Code(s): 755512480 Code(s): D50.0 - IRON DEFICIENCY ANEMIA SECONDARY TO BLOOD LOSS (CHRONIC) Status: Acute Current Visit: Yes - Problem List Review Problem List Initiated/Reviewed/Updated: Yes - My Orders Last 24 Hours: Active Orders 24 hr Category Date Time Status Patient Status [ADT] Routine ADT 08/24/20 13:08 Active Antiembolic Devices [RC] PER UNIT ROUTINE Care 08/24/20 13:09 Active Notify Provider Intake and Out [RC] ASDIRECTED Care 08/24/20 13:08 Active Notify Provider Vital Signs [RC] ASDIRECTED Care 08/24/20 13:08 Active Oxygen Therapy [RC] ASDIRECTED Care 08/24/20 13:08 Active RT Aerosol Therapy [RC] ASDIRECTED Care 08/24/20 09:42 Active RT Aerosol Therapy [RC] ASDIRECTED Care 08/24/20 09:42 Active RT Aerosol Therapy [RC] ASDIRECTED Care 08/24/20 09:42 Active RT Incentive Spirometry [RC] Q2HWA Care 08/24/20 13:08 Active Up With Assistance [RC] PER UNIT ROUTINE Care 08/24/20 13:08 Active Up ad Elizabeth [RC] PER UNIT ROUTINE Care 08/24/20 13:08 Active Urinary Catheter Removal [RC] Per Unit Routine Care 08/24/20 13:08 Active Vital Signs [RC] Q4H Care 08/24/20 13:08 Active Regular Diet [DIET] Diet 08/24/20 Dinner Active Acetaminophen/oxyCODONE [Percocet 325-5 MG] Med 08/24/20 13:08 Active 1 tab PO Q4H PRN Acetaminophen/oxyCODONE [Percocet 325-5 MG] Med 08/24/20 13:08 Active 2 tab PO Q4H PRN Morphine Med 08/24/20 13:08 Active 4 mg IVPUSH Q2H PRN Ondansetron [Zofran] Med 08/24/20 13:08 Active 4 mg IVPUSH Q6H PRN Promethazine [Phenergan] Med 08/24/20 13:08 Active 25 mg IM Q6H PRN Medication Administration Instruction [OM.PC] Routine Oth 08/24/20 09:42 Ordered Peripheral IV Discontinue [OM.PC] Routine Oth 08/24/20 13:08 Ordered Sequential Compression Device [OM.PC] Per Unit Routine Oth 08/24/20 13:08 Ordered Resuscitation Status Routine Resus Stat 08/24/20 13:08 Ordered Medication Orders Morphine Sulfate (Morphine) 4 mg IVPUSH Q2H PRN PRN Reason: Pain (severe 7-10) Ondansetron HCl (Zofran) 4 mg IVPUSH Q6H PRN PRN Reason: Nausea/Vomiting Oxycodone/Acetaminophen (Percocet 325-5 Mg) 1 tab PO Q4H PRN PRN Reason: Pain (moderate 4-6) Last Admin: 08/25/20 04:57 Dose: 1 tab Documented by: [id number] Oxycodone/Acetaminophen (Percocet 325-5 Mg) 2 tab PO Q4H PRN PRN Reason: Pain (moderate 4-6) Last Admin: 08/24/20 22:04 Dose: 2 tab Documented by: [id number] Admin: 08/24/20 17:01 Dose: 2 tab Documented by: TERESITA Promethazine HCl (Phenergan) 25 mg IM Q6H PRN PRN Reason: Nausea/Vomiting - Assessment Assessment (Free Text/Narrative):: POD#1 after TVH, posterior colporrhaphy, perineorrhaphy, midurethral sling. Stable. She was anemic at 10.3 preop today 7.7 anticipated based on preop lab and blood loss. She denies palpitation, or shortness of breath. Has not been up walking yet. Pain is controlled, tolerating diet. - Plan Plan (Free Text/Narrative):: Encourage ambulation with assistance initially. Will check postvoid residual. If less than 100 ml, will discharge without catheter. Discharge precautions reviewed.
[2020-08-25 14:51] VITALS: BP 116/58; PULSE 82
== END 2020-08-25 17:10 | disposition home or self-care (01) ==
LOC: MW.SDS 08:52 → MW.MS 13:01 → MW.SDS 08-25 12:59 → MW.MS 08-25 13:00
PROVIDERS: ADMIT Obstetrics & Gynecology; ATTEND Obstetrics & Gynecology
DX: N85.00 Endometrial hyperplasia, unspecified (principal); N39.3 Stress incontinence (female) (male); N72 Inflammatory disease of cervix uteri; I10 Essential (primary) hypertension; F41.9 Anxiety disorder, unspecified; E66.9 Obesity, unspecified; Z79.899 Other long term (current) drug therapy; Z98.890 Other specified postprocedural states; Z91.09 Other allergy status, other than to drugs and biological substances; Z68.31 Body mass index [BMI] 31.0-31.9, adult
CPT/HCPCS: 36415; 51702; 57250; 57288; 58260; 80048; 81025; 85014; 85018; 85025; 85027; 86850; 86900; 86901; A9270; C1771; G0378; J0690; J1170; J1940; J2001; J2250; J2405; J2704; J3010; J3490; 00944; 88307

== ENCOUNTER 2024-07-07 07:54 | Day surgery (SDC) | payer BC ==
[~2024-07-07 07:54] MED LIST changes: -Bupivacaine 0.25% 10 ML SDV ONE; -Fluorescein 5 ML Vial ONE; -Glycopyrrolate 0.2 MG/ML SDV ONE; -Lactated Ringers 1,000 ML IV SCH; -Lidocaine 2% 5 ML SDV ONE; -Midazolam 1 MG/ML 2 ML SDV ONE; -Ondansetron 4 MG/2 ML SDV ONE; -Propofol 200 MG/20 ML SDV ONE; +Sodium Chloride 0.9% 10 ML Syringe FLUSH PRN; +Sodium Chloride 0.9% 2.5 ML Syringe FLUSH PRN; +Sodium Chloride 0.9% 20 ML SDV IV PRN; -fentaNYL 250 MCG/5 ML SDV ONE
[2024-07-07] MEDS: Lactated Ringers 1,000 ML IV SCH (08:14)
[2024-07-07] MEDS ORDERED: propofoL 50 ML ONE (08:29)
[2024-07-07 11:24] VITALS: BP 119/79; PULSE 56
[2024-07-07] MEDS ORDERED: dexmedeTOMIDine HCl 200 MCG/2 ML SDV ONE (11:33)
== END 2024-07-07 11:17 | disposition home or self-care (01) ==
LOC: MW.SDS 07:54
PROVIDERS: ATTEND Surgery
DX: R10.9 Unspecified abdominal pain (principal); I10 Essential (primary) hypertension; F41.9 Anxiety disorder, unspecified; Z79.899 Other long term (current) drug therapy; Z91.048 Other nonmedicinal substance allergy status
CPT/HCPCS: 43239; 45380; J2704; J7120; 00813; J3490

== ENCOUNTER 2024-09-13 07:51 | Day surgery (SDC) | payer BC ==
[~2024-09-13 07:51] MED LIST changes: +Albuterol 0.083% 2.5 MG/3 ML Neb Soln NEB PRN; +HYDROmorphone 1 MG/ML Syringe IVPUSH PRN; +Metoclopramide 10 MG/2 ML SDV IVPUSH PRN; +Morphine 2 MG/ML SYRINGE IVPUSH PRN; +Naloxone 0.4 MG/ML SDV IVPUSH PRN; +Ondansetron 4 MG/2 ML SDV IVPUSH PRN; +Phenylephrine HCl In 0.9% NaCl 1 MG/10 ML Syringe IVPUSH PRN; +ceFAZolin 2 GM in Sodium Chloride 0.9% 50 ML IV ONE; +fentaNYL 50 MCG/ML SDV IVPUSH PRN
[2024-09-13] MEDS ORDERED: Bupivacaine 0.5% 30 ML SDV ONE (07:59)
[2024-09-13] MEDS: Lactated Ringers 1,000 ML IV SCH (08:21)
[2024-09-13] MEDS ORDERED: Lidocaine 2% 11 ML Jelly Filled Syringe ONE (09:04)
[2024-09-13] MEDS ORDERED: propofoL 500 MG/50 ML 50 ML ONE (09:05)
[2024-09-13] MEDS ORDERED: Morphine 10 MG/ML SDV ONE (09:06)
[2024-09-13] MEDS ORDERED: Propofol 200 MG/20 ML SDV ONE ×2 (09:06→11:23)
[2024-09-13] MEDS ORDERED: fentaNYL 250 MCG/5 ML SDV ONE ×2 (09:06→11:10)
[2024-09-13] MEDS ORDERED: Ropivacaine 0.5% 5 MG/ML 30 ML SDV ONE (09:09)
[2024-09-13] MEDS ORDERED: Famotidine 20 MG/2 ML SDV ONE (09:09)
[2024-09-13] MEDS ORDERED: Rocuronium Bromide 50 MG/5 ML Syringe ONE (09:10)
[2024-09-13] MEDS ORDERED: dexmedeTOMIDine HCl 200 MCG/2 ML SDV ONE (09:11)
[2024-09-13] MEDS ORDERED: Sugammadex Sodium 200 MG/2 ML VIAL IV ONE (09:14)
[2024-09-13] MEDS ORDERED: Ketamine HCL/NACL, ISO-OSM 50 MG/5 ML Syringe ONE (10:33)
[2024-09-13] MEDS ORDERED: ceFAZolin 2 GM Vial ONE (10:50)
[2024-09-13 13:36] VITALS: BP 105/71; PULSE 47
== END 2024-09-13 14:15 | disposition home or self-care (01) ==
LOC: MW.SDS 07:51
PROVIDERS: ATTEND Surgery
DX: K80.10 Calculus of gallbladder with chronic cholecystitis without obstruction (principal); K82.8 Other specified diseases of gallbladder; K42.9 Umbilical hernia without obstruction or gangrene; I10 Essential (primary) hypertension; F41.9 Anxiety disorder, unspecified; Z87.891 Personal history of nicotine dependence; Z79.899 Other long term (current) drug therapy
CPT/HCPCS: 47562; A9270; J0131; J0665; J0690; J2272; J2704; J2795; J3010; J3490; J7120